=== PATIENT | male | born 1975 | race Caucasian/White ===

== ENCOUNTER → 2016-07-04 | Outpatient (CLI) | payer BC ==
--- NOTE | 2016-07-05 07:36 | RAD ---
Lumbar spine, 3 views, 07/04/2016: History: Low back pain The lumbar vertebral heights are well-maintained. There is minimal disc space narrowing at L5-S1. There are minimal scattered marginal spurs. No fracture or dislocation is identified. The paraspinous soft tissues are unremarkable. IMPRESSION: 1. Minimal marginal spurring. 2. No acute abnormality is detected.
== END | disposition home or self-care (01) ==
LOC: RAD 17:16
DX: M54.5 Low back pain (principal)
CPT/HCPCS: 72100

== ENCOUNTER 2021-06-20 18:46 | Emergency (ER) | payer BC ==
--- NOTE | 2021-06-20 18:56 | PHYS DOC ---
General Adult HPI: HPI: Patient is a 46 year old male who presents with above hx and complaints BACK PAIN. Pt. left without being seen. Review of Systems: Review of Systems: Musculoskeletal: Hx back pain per check in Physical Exam: PE: Pt. left after check in. Pt. not seen by physician. EKG: EKG: [] Radiology/Procedures: Radiology/Procedures: [] Heart Score: C/O Chest Pain: N/A Risk Factors: Risk Factors: DM, Current or recent (<one month) smoker, HTN, HLP, family history of CAD, obesity. Risk Scores: Score 0 - 3: 2.5% MACE over next 6 weeks - Discharge Home Score 4 - 6: 20.3% MACE over next 6 weeks - Admit for Clinical Observation Score 7 - 10: 72.7% MACE over next 6 weeks - Early Invasive Strategies Course & Med Decision Making: Course & Med Decision Making Pertinent Labs and Imaging studies reviewed. (See chart for details) Left without being seen. [] Dragon Disclaimer: Dragon Disclaimer: This electronic medical record was generated, in whole or in part, using a voice recognition dictation system. Departure Departure: Referrals: MARLA LUNDBERG MD (PCP) RADHA GENTILE MD Jun 20, 2021 18:56
== END 2021-06-20 19:03 | disposition left against medical advice (07) ==
LOC: ER 18:46
DX: M54.59 Other low back pain (principal); Z53.21 Procedure and treatment not carried out due to patient leaving prior to being seen by health care provider